=== PATIENT | male | born 2000 | race Caucasian/White ===

== ENCOUNTER 2023-02-06 10:20 | Emergency (ER) | payer OTHER ==
[~2023-02-06] VITALS: Ht 167.6 cm; Wt 71.4 kg
[2023-02-06] MEDS ORDERED: SODIUM CHLORIDE IV ONE (11:40)
[2023-02-06 12:11] LABS: BASO % 0.7 % (0.0-1.0); EOS # 0.1 10^3/uL (0.0-0.5); EOS % 0.9 % (0.0-3.0); HEMATOCRIT 48.7 % (42.0-52.0); HEMOGLOBIN 16.6 g/dl (13.5-17.5); LYMPH # 1.4 10^3/uL (1.5-5.0); LYMPH % 25.5 % (24.0-44.0); MEAN CORPUSCULAR HEMOGLOBIN 30.5 pg (27.0-33.0); MEAN CORPUSCULAR HGB CONC 34.1 g/dl (32.0-36.5); MEAN CORPUSCULAR VOLUME 89.4 fl (80.0-96.0); MONO # 0.5 10^3/uL (0.0-0.8); MONO % 9.4 % (2.0-8.0); NEUTROPHILS # 3.5 10^3/uL (1.5-8.5); NEUTROPHILS % 63.3 % (36.0-66.0); PLATELET COUNT, AUTOMATED 261 10^3/uL (150-450); RED BLOOD COUNT 5.45 10^6/uL (4.30-6.10); WHITE BLOOD COUNT 5.5 10^3/uL (4.0-10.0)
[2023-02-06 12:58] LABS: CK-MB VALUE MASS < 1.0 NG/ML (<3.6)
[2023-02-06 13:03] LABS: IRON (FE) 159 UG/DL (65-175); PERCENT SATURATION 41.2 % (19.7-50.0); THYROID STIMULATING HORMONE 0.902 uIU/ML (0.55-4.78); TOTAL IRON BINDING CAPACITY 386 UG/DL (250-425)
[2023-02-06 13:04] LABS: FREE THYROXINE INDEX 3.1 % (1.4-3.8); T UPTAKE 34.5 % (22.5-37.0)
[2023-02-06 13:10] LABS: CPK CREATINE PHOSPHOKINASE 163 U/L (46-171); MB/CK RELATIVE INDEX 0.61 (< OR =4)
[2023-02-06 13:20] VITALS: BP 136/75; TEMP 98; O2SAT 100
== END 2023-02-06 14:09 | disposition home or self-care (01) ==
LOC: M ED 10:20
DX: R53.1 Weakness (principal); R20.2 Paresthesia of skin

== ENCOUNTER 2023-09-17 20:03 | Emergency (ER) | payer OTHER ==
[~2023-09-17] VITALS: Ht 170.2 cm; Wt 73.7 kg
[2023-09-17] MEDS ORDERED: BACT800T5 PO (23:48)
[2023-09-17] MEDS: BACTRIM 160MG/800MG DS TAB PO ONE (23:53)
[2023-09-18 00:01] VITALS: BP 131/61; TEMP 98.2; O2SAT 98
== END 2023-09-18 00:14 | disposition home or self-care (01) ==
LOC: M ED 20:03
DX: L05.01 Pilonidal cyst with abscess (principal)

== ENCOUNTER → 2023-10-30 | Outpatient (REF) | payer OTHER ==
[~2023-10-30] MED LIST: BACT800T5 PO
== END ==
LOC: M LAB REF 12:32
PROVIDERS: ATTEND Physician Assistant
DX: J02.9 Acute pharyngitis, unspecified (principal)